=== PATIENT | male | born 1980 | race Caucasian/White ===

== ENCOUNTER 2021-02-19 14:55 | Emergency (ER) | payer SELFPAY ==
[2021-02-19 15:22] VITALS: BP 133/80; PULSE 68; RESP 16; TEMP 37.1; O2SAT 99; BMI 18.4
--- NOTE | 2021-02-19 15:39 | ED_ITS ---
HPI - Skin/Abscess/Foreign Bdy General: Chief complaint: Skin/Abscess/Foreign Body Stated complaint: FISH HOOK STUCK IN L. ARM Time Seen by Provider: 02/19/21 15:37 History of Present Illness: HPI narrative: Patient is a 40-year-old male comes to the ED with a fish hook in the left upper arm. Patient says the fishhook has been used previously. He reports minimal pain. He does need an updated tetanus. Associated symptoms: Deny chills, fever(s), nausea or vomiting Review of Systems Const: Denies: fever(s), chills or fatigue Eyes: Denies: change in vision or eye discomfort ENMT: Denies: throat pain, odynophagia, nasal discharge or nasal congestion Card: Denies: chest pain, palpitations, edema, swelling of feet/ankles, dyspnea on exertion or orthopnea Resp: Denies: dyspnea, productive cough or non-productive cough GI: Denies: abdominal pain, nausea, vomiting, diarrhea, constipation or hematochezia : Denies: flank pain, difficulty urinating, dysuria or hematuria Musc: Denies: neck pain, back pain or extremity swelling Skin/Breast: Reports: other (Manito stuck in skin of left upper arm); Denies: rash or new lesions Neuro: Denies: headache(s), numbness in extremities or weakness in extremities PFSH ED PFSH: Social History Smoking and tobacco status: current every day smoker cigarettes Packs smoked per day: 2 Years cigarettes smoked: 20 Quit status (tobacco): has tried quititng Number of times tried to quit tobacco: 1 Second hand smoke exposure: Yes Smoking risk assessment/counseling performed?: No Physical Exam Const: COMMON NORMALS: no acute distress, patient oriented x3 and alert GENERAL APPEARANCE: cooperative and comfortable HENMT: COMMON NORMALS: normocephalic HEAD & SCALP: normocephalic MOUTH: Normal oral and palatal mucosa present THROAT: posterior oropharynx normal and uvula midline Neck/C-Spine: COMMON NORMALS: supple GENERAL: Yes normal visual inspection Resp: COMMON NORMALS: normal respiratory effort, No retractions, No use of accessory muscles and clear to auscultation bilaterally AUSCULTATION: clear to auscultation bilaterally Cardio: COMMON NORMALS: regular rate, regular rhythm, S1 normal heart sound present, S2 normal heart sound present, No gallops present (Cardio), No clicks present (Cardio), No murmurs present (Cardio) and Peripheral pulses 2+ through out RATE: regular rate RHYTHM: regular rhythm HEART SOUNDS: S1 normal heart sound present and S2 normal heart sound present PERIPHERAL PULSES: Peripheral pulses 2+ throughout GI: COMMON NORMALS: Normal to inspection, nondistended, normoactive bowel sounds present, Soft to palpation, non-tender and no masses PALPATION: Yes Soft to palpation : COMMON NORMALS: Yes no CVA tenderness BLADDER/KIDNEY EXAM: Yes no CVA tenderness Back/Pelvis: COMMON NORMALS: no CVA tenderness Extremity: NARRATIVE EXTREMITY EXAM: Patient has trouble fishhook stuck in upper left arm skin tissue. No erythema, warmth or purulent drainage noted. GENERAL: Yes normal exam except as noted Neuro: COMMON NORMALS: patient oriented x3 and moves all extremities SENSORIUM/ORIENTATION: Yes alert Skin: NARRATIVE SKIN EXAM: Patient has trouble fishhook stuck in upper left arm skin tissue. No erythema, warmth or purulent drainage noted. Procedures Foreign Body Removal Time Out Performed: yes Site: upper extremity (fish hook in left upper arm) Description of foreign body: fish hook Sedation/Analgesia: other (lidocaine 1% with Epi) Technique: removal with forceps Confirmed by:: direct visualization Complications: none Post-procedure exam: awake, alert Neurovascular: no change from pre-procedure Course Vital Signs: Vital signs: Vital Signs Temperature 98.8 F 02/19/21 15:22 Pulse Rate 66 02/19/21 16:22 Respiratory Rate 18 02/19/21 16:22 Blood Pressure 130/82 02/19/21 16:22 Pulse Oximetry 99 02/19/21 16:22 MDM - Skin/Abscess/Foreign Bdy MDM Narrative: Medical decision making narrative: Patient is a 40-year-old male comes to the ED with left upper arm fishhook. CHG swab used to clean skin around fishhook. Lidocaine 1% with epi was used as local and fishhook was removed with forceps. I irrigated the puncture wound site with normal saline. He was given an updated tetanus shot while here in the ED. He was sent home on a prescription of cephalexin as prophylactic treatment. Return to ED precautions given. Follow-up with PCP in 7 to 10 days reevaluation. Patient understood and agree with plan. Discharge Plan Discharge Patient Disposition: Home Clinical Impression: Fish hook injury of left upper arm Condition: Stable Prescriptions: New cephalexin 500 mg capsule 500 mg PO Q6H 4 Days Qty: 16 RF: 0 No Action No Known Home Medications RF: 0 Discharge Orders: Discharge ED (Routine); Ordered 02/19/21 Ordered By: Benjamín Kilgore Discharge Diet: Regular Discharge Activity: Resume usual activity Patient Instructions: Soft Tissue Foreign Body (ED) Activity Restrictions/Additional Instructions: Follow-up with medical provider as directed in 7 to 10 days reevaluation. Take medications as prescribed. Return to the ER or your medical provider if condition worsens. Please read and understand discharge instructions. Thank you for choosing [facility] for your healthcare needs today. Please realize this is an emergency room and that we are providing you with a medical screening exam and this may not be complete and all inclusive of all the testing and or work up that you may need to determine your ailment or severity of your illness. It is very important that you follow up as instructed or that you return to the Emergency Department should you have concerns or if your condition changes or worsens in any way. Coding Level of Care Code ED Show Design Supervisor for Thee Mathews Exam Comprehensive
[2021-02-19] MEDS: tetanus-dipt-pertussis 0.5 mL SDV IM (16:02)
[2021-02-19 16:22] VITALS: BP 130/82; PULSE 66; RESP 18; O2SAT 99
== END 2021-02-19 16:23 | disposition home or self-care (01) ==
PROVIDERS: Emergency Provider Physician Assistant
DX: S41.142A Puncture wound with foreign body of left upper arm, initial encounter (principal); W26.8XXA Contact with other sharp object(s), not elsewhere classified, initial encounter; F17.210 Nicotine dependence, cigarettes, uncomplicated; Z23 Encounter for immunization
CPT/HCPCS: 90471; 90715; 99282

== ENCOUNTER 2021-06-29 12:48 | Emergency (ER) | payer SELFPAY ==
[2021-06-29 13:24] VITALS: BP 131/70; PULSE 70; RESP 16; TEMP 36.7; O2SAT 97; BMI 17.7
--- NOTE | 2021-06-29 13:46 | XR_ITS ---
WS: [id number] XR KUB portable [id number] REASON FOR EXAM: abd discomfort FINDINGS: No free air or retroperitoneal air. Somewhat prominent amount of bowel gas from stomach to the rectum with no significant bowel distentio n. No urinary tract calculi or other significant calcification. No mass identified. XR/XR KUB portable [id number] IMPRESSION: Nonspecific bowel gas pattern with no definite acute abnormality.
--- NOTE | 2021-06-29 13:47 | W.ED.ABDPA2 ---
HPI - Abdominal Pain General: Chief Complaint: Abdominal Pain Stated Complaint: SEVERE ABD PAINS Time Seen by Provider: 06/29/21 13:39 History of Present Illness: HPI narrative: Patient presents with abdominal discomfort times the last couple days in his lower abdomen. 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 No problems urination. He has not had any fever chills nausea or vomiting. Bowels work so so he says. Denies any recent injury. MD elicited complaint: abdominal pain Pertinent past history: other (Hernia repair) Onset (ago): day(s) (To) Pain Consistency: constant Location: Suprapubic Severity: moderate Quality: aching Radiation: none Exacerbating factors: movement Relieving factors: nothing Associated Symptoms: Reports no associated symptoms; Denies chills, fever(s), nausea and vomiting Review of Systems Const: Denies: fever(s), chills or body aches Eyes: Denies: change in vision or blurry vision ENMT: Denies: throat pain or nasal congestion Card: Denies: chest pain or dyspnea on exertion Resp: Denies: dyspnea, productive cough or non-productive cough GI: Reports: abdominal pain (Lower abdomen center); Denies: nausea or vomiting : Denies: difficulty urinating Musc: Denies: extremity pain Skin/Breast: Denies: rash Neuro: Denies: headache(s) Psych: Denies: anxiety or depression Raheem/Lymph: Denies: easy bruising PFSH ED PFSH: Social History Smoking and tobacco status: current every day smoker cigarettes Packs smoked per day: 2 Years cigarettes smoked: 20 Quit status (tobacco): has tried quititng Number of times tried to quit tobacco: 1 Second hand smoke exposure: Yes Smoking risk assessment/counseling performed?: No Physical Exam Const: COMMON NORMALS: no acute distress, average body habitus and patient oriented x3 HENMT: COMMON NORMALS: normocephalic HEAD & SCALP: normal to inspection and normocephalic FACE & SINUS: normal facial exam Eye: COMMON NORMALS: conjunctivae normal GENERAL EYE: appearance normal, both eyes and all related structures CONJUNCTIVA: Yes conjunctivae normal Neck/C-Spine: COMMON NORMALS: no JVD Chest: COMMONS NORMALS: normal inspection of the chest Resp: COMMON NORMALS: normal respiratory effort and clear to auscultation bilaterally AUSCULTATION: clear to auscultation bilaterally Cardio: COMMON NORMALS: no JVD, regular rate and regular rhythm RATE: regular rate RHYTHM: regular rhythm GI: INSPECTION: Yes normal to inspection AUSCULTATION: Yes Hypoactive bowel sounds present PALPATION: Yes Tenderness to palpation present (GI) Details: other (Suprapubic area) and Yes Other GI palpation findings present (No evidence of hernia) PERCUSSION: dullness to percussion Extremity: COMMON NORMALS: normal to inspection and full ROM Neuro: COMMON NORMALS: patient oriented x3 Course Vital Signs: Vital signs: Vital Signs Temperature 98.1 F 06/29/21 13:24 Pulse Rate 70 06/29/21 13:24 Respiratory Rate 16 06/29/21 13:24 Blood Pressure 131/70 06/29/21 13:24 Pulse Oximetry 97 06/29/21 13:24 MDM - Abdominal Pain MDM Narrative: Medical decision making narrative: Patient presents here with concerns about a possible hernia. He had some abdominal discomfort last couple days. Says hurts across his abdomen lower abdomen more so. Patient does not appear any acute distress vital signs are normal. Mild tenderness on exam. X-rays shows a lot of bowel gas some stool in rectal vault no evidence obstruction. Patient was encouraged to take medication directed, make some diet changes, follow-up with primary care or return here for worsening symptoms. Discharge Plan Discharge Patient Disposition: Home Clinical Impression: Abdominal pain Qualifiers: Abdominal location: unspecified location Qualified Code(s): R10.9 - Unspecified abdominal pain Condition: Stable Prescriptions: New Gas Relief (simethicone) 250 mg capsule 250 mg PO BID PRN (Reason: abdominal distention) Qty: 14 RF: 0 magnesium citrate Solution 296 ml PO DAILY PRN (Reason: constipation) 2 Days Qty: 296 RF: 0 Discharge Orders: Discharge ED (Routine); Ordered 06/29/21 Ordered By: Eben Dunn Discharge Diet: As Directed Discharge Activity: Resume usual activity Patient Instructions: Gas and Bloating (ED), Abdominal Pain (ED) Activity Restrictions/Additional Instructions: Follow-up with medical provider as directed. Take medications as prescribed. Return to the ER or your medical provider if condition worsens. Please read and understand discharge instructions. If any questions ask please. Coding Level of Care Code ED Kitchen Cleaner for Chg Fwd Exam Comprehensive
== END 2021-06-29 14:33 | disposition home or self-care (01) ==
PROVIDERS: Emergency Provider Nurse Practitioner Family
DX: R10.9 Unspecified abdominal pain (principal)
CPT/HCPCS: 74018; 99282

== ENCOUNTER 2021-12-16 08:03 | Emergency (ER) | payer SELFPAY ==
[2021-12-16 08:29] VITALS: BP 118/72; PULSE 73; RESP 16; O2SAT 96; BMI 19.0
--- NOTE | 2021-12-16 08:29 | XRR_ITS ---
PROCEDURE INFORMATION: Exam: XR Left Foot Exam date and time: 12/16/2021 8:43 AM Age: 41 years old Clinical indication: Injury or trauma; Other: Nail to foot; Work related; Puncture; Left; With foreign body TECHNIQUE: Imaging protocol: Radiologic exam of the Left foot. Views: 3 or more views. COMPARISON: No relevant prior studies available. FINDINGS: Bones/joints: No acute bony injury or malalignment in the left foot. Soft tissues: No radiopaque foreign body in the left foot. Incompletely visualized linear radiopaque density about the distal tibia and fibula. XR/XR foot LT min 3V* [id number] IMPRESSION: 1. No radiopaque foreign body in the left foot. 2. Additional findings as described above.
--- NOTE | 2021-12-16 08:29 | W.ED.LOWEXIN ---
HPI - Extremity Injury (Lower) General: Chief Complaint: Extremity Injury, Lower Stated Complaint: left foot injury Time Seen by Provider: 12/16/21 08:22 History of Present Illness: 41-year-old presents due to left foot injury. 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 He removed it. States tetanus is up-to-date. Denies any numbness or tingling. States that bleeding is stopped. Denies any other focal injury or pain. Review of Systems Narrative: - CONSTITUTIONAL: Denies weight loss, fever and chills. - HEENT: Denies changes in vision and hearing. - RESPIRATORY: Denies SOB and cough. - CV: Denies palpitations and CP. - GI: Denies abdominal pain, nausea, vomiting and diarrhea. - : Denies dysuria and urinary frequency. - MSK: Denies myalgia and joint pain. - SKIN: Denies rash and pruritus. - NEUROLOGICAL: Denies headache, weakness, numbness and syncope. - PSYCHIATRIC: Denies suicidal ideation [facility] ED PFSH: Social History Smoking and tobacco status: current every day smoker cigarettes Packs smoked per day: 2 Years cigarettes smoked: 20 Quit status (tobacco): has tried quititng Number of times tried to quit tobacco: 1 Second hand smoke exposure: Yes Smoking risk assessment/counseling performed?: No Physical Exam Narrative: EXAM NARRATIVE: - GENERAL: Alert and oriented x 3. No acute distress. Well-nourished. - EYES: EOMI. Anicteric. - HENT: Atraumatic, no C-spine tenderness. Moist mucous membranes. No scleral icterus. No cervical lymphadenopathy. - LUNGS: Clear to auscultation bilaterally. No accessory muscle use. Equal lung sounds bilaterally. No respiratory distress. - CARDIOVASCULAR: Regular rate and rhythm. No murmur. No JVD. - ABDOMEN: Soft, non-tender and non-distended. Negative CVA tenderness bilaterally, no rebound or guarding, negative Del Real sign. No palpable masses. - EXTREMITIES: Small puncture wound approximately 1 cm proximal to the left first MTP joint. No tenderness of the joint. Minor tenderness over the wound. No drainage. Extremities neurovascular intact compartments are soft. No edema. - SKIN: No rashes or lesions. Warm. - NEUROLOGIC: No meningismus or focal neurological deficits. CN II-XII grossly intact. - PSYCHIATRIC: Cooperative. Appropriate mood and affect. Course Vital Signs: Vital signs: Vital Signs Pulse Rate 73 12/16/21 08:29 Respiratory Rate 16 12/16/21 08:29 Blood Pressure 118/72 12/16/21 08:29 Pulse Oximetry 96 12/16/21 08:29 MDM - Extremity Injury (Lower) Medical Decision Making 41-year-old presents due to puncture wound from nail to his left foot. X-ray does not reveal any fracture dislocation or apparent foreign body in this area. There is a radiopaque density in the tib-fib region however patient denies any symptoms or injury to this area. Given that the injury occurred through a shoe prescription for Cipro provided. Tetanus is up-to-date. Wound care instructions provided. At this time I believe patient would be safe for discharge and outpatient follow-up. Return precautions provided. Plan was reviewed with the patient who expressed understanding. Questions answered. Patient will follow up with PCP. Patient discharged in stable condition. Lab Data Radiology Impressions Foot X-Ray 12/16/21 08:29 IMPRESSION: 1. No radiopaque foreign body in the left foot. 2. Additional findings as described above. Discharge Plan Discharge Condition: Stable Prescriptions: No Action Gas Relief (simethicone) 250 mg capsule 250 mg PO BID PRN (Reason: abdominal distention) Qty: 14 0RF Coding Level of Care Code ED Systems Auditor for Thee Mathews
[2021-12-16] MEDS: acetaminophen 500 mg Tablet PO (09:12)
[2021-12-16 10:06] VITALS: BP 129/81; PULSE 56; RESP 14; O2SAT 96
== END 2021-12-16 10:06 | disposition home or self-care (01) ==
PROVIDERS: Emergency Provider Emergency Medicine
DX: S91.332A Puncture wound without foreign body, left foot, initial encounter (principal); W29.4XXA Contact with nail gun, initial encounter
CPT/HCPCS: 73630; 99283